=== PATIENT | male | born 1945 | race Two or more races ===

== ENCOUNTER 2023-12-20 13:35 | Emergency (ER) | payer BC, OTHER ==
[~2023-12-20] VITALS: Ht 180.3 cm; Wt 110.0 kg
[2023-12-20 13:47] VITALS: BP 0/0; PULSE 0; RESP 10
== END 2023-12-21 06:00 ==
LOC: EDBD 13:35 → ER 13:35
DX: I46.9 Cardiac arrest, cause unspecified (principal); I10 Essential (primary) hypertension
CPT/HCPCS: 92950